=== PATIENT | female | born 1975 | race Caucasian/White ===

== ENCOUNTER 2016-09-15 17:56 | Inpatient (IN) | payer OTHER ==
--- NOTE | ~2016-09-15 | OR ---
Unit #: [id number] #: [id number] Patient: JAMES RUIZ [id number] [facility] [address]. [place], [place] [address] [id number] MR#: [id number] NAME: JAMES RUIZ ROOM: 472 Date of Procedure: 09/16/2016 Admission Date: 09/15/2016 Surgeon: Enrique Hernandez M.D. : 1975 Attending Physician: Tom Baker III, M.D. OPERATIVE REPORT PREOPERATIVE DIAGNOSES 1. Acute surgical abdomen. 2. Perforated appendix with abscess by CT. POSTOPERATIVE DIAGNOSES 1. Acute surgical abdomen. 2. Perforated appendix with abscess by CT. PROCEDURES PERFORMED 1. Exploratory laparotomy. 2. Appendectomy with drainage of the pelvic abscess. 3. Aerobic and anaerobic cultures taken. ANESTHESIA General endotracheal anesthesia. ESTIMATED BLOOD LOSS 50 mL. INDICATIONS FOR PROCEDURE Ms. Fields is a 40-year-old [place] female, who presented to [facility] after a 5-day history of abdominal pain at home. She continued to have worsening pain and fever, and came to the emergency room. In the emergency room, a CT scan was consistent with perforated appendicitis with abscess that was not amenable to percutaneous drainage. DESCRIPTION OF PROCEDURE The patient was transported from [facility] to [facility] [place] [facility], where after evaluation, she was brought to the operating room at the first available time. She had already received IV antibiotics, so after induction of general endotracheal anesthesia, nasogastric tube and Martines catheter were placed as well as SCDs. She was prepped and draped in the usual sterile fashion. A midline incision was made. We dissected down through the soft tissue and entered the peritoneal cavity. Upon entering the peritoneal cavity, we identified a phlegmonous mass in the central pelvis. As I opened up the abscess, there was gross purulent drainage, and it was suctioned out to limit the contamination of the abdominal cavity. Cultures were taken. The abscess was bounded by the appendix, cecum, the terminal ileum, the sigmoid colon, and the uterus. I dissected these structures out and examined them, the small bowel, the sigmoid colon, and uterus other than some inflammatory exudate were intact. The cecum was mobilized and brought up into the wound. The Unit #: [id number] #: [id number] Patient: JAMES RUIZ appendix was necrotic and perforated in the mid appendiceal body, so I dissected this free, clamped, divided, and suture ligated the mesoappendix, and then dissected the base of the appendix down to where it entered the cecum. This was clamped with a right angle clamp, and the appendix was sharply incised and sent to the laboratory. I suture ligated the appendiceal stump, and then it was inverted with 2-0 silk suture. I irrigated and obtained hemostasis. Some epiploic fat was sewn over the closure site. After I ensured that there was good hemostasis, we copiously irrigated the pelvis with bacitracin solution. I placed the cecum back in the right lower quadrant. I ran the small bowel, and except for the area that was inflamed from bordering the abscess, the small bowel was normal. The bowel was reduced back in the peritoneal cavity. Omentum was pulled over the bowel, and the fascia was closed with #1 looped PDS running suture. Once the fascia was closed, I irrigated the soft tissue with bacitracin solution followed by Betadine. The skin was loosely approximated with sterile skin deirdre. Dry sterile dressing was placed. Sponges and needle counts were correct x3. The patient tolerated the procedure well, and was transported to the recovery room in stable condition. Findings were discussed with the patient's friend through the use of an water manager. Dictated by... Jarek Cooper/maki TD: 09/16/2016 18:52 JOB #: [id number] OPERATIVE REPORT Page 1 of 1 X Enrique Hernandez MD PROCEDURE OPERATIVE NOTE
--- NOTE | ~2016-09-15 | DS ---
Unit #: [id number] #: [id number] Patient: JAMES RUIZ [id number] [address] [address] [id number] I MR#: [id number] NAME: JAMES RUIZ ROOM: 47 Age: 40 Sex: F Admission Date: 09/15/2016 : 1975 Discharge Date: 09/20/2016 Attending Physician: Tom Baker III, M.D. Primary Care Physician: Yessica Primary Care Physician DISCHARGE SUMMARY REASON FOR ADMISSION Perforated appendicitis. HISTORY OF PRESENT ILLNESS The patient is a 36-year-old woman who presented to the emergency room after a 5-day history of abdominal pain. She had worsening pain and fever. She came to the emergency room and a CT scan was consistent with perforated appendicitis with an abscess. It was not amenable to percutaneous drainage. PHYSICAL EXAMINATION See admission history and physical. HOSPITAL COURSE The patient was admitted to [facility] and brought to the operating room for exploratory laparotomy and appendectomy with drainage of large pelvic abscess. Postoperatively the patient had slow return of bowel function. She was advanced to a regular diet and her white blood cell count normalized. She was having bowel movements and no fevers. She was deemed ready for discharge home on 09/20/2016. DISPOSITOIN Home. DISCHARGE CONDITION Good. FOLLOWUP She will follow up with Dr. Baker in two weeks. DISCHARGE MEDICATIONS 1. [place]. 2. Flagyl. 3. Ciprofloxacin. Dictated by... Jarek Campbell/jr TD: 09/20/2016 07:51 Unit #: [id number] #: [id number] Patient: JAMES RUIZ JOB #: [id number] DISCHARGE SUMMARY Page 1 of 1 X Camron Mccoy DISCHARGE SUMMARY
[2016-09-16 04:17] LABS: BASOPHIL# 0.1 X10e3 (0-0.3); BASOPHIL% 0.4 % (0-2.5); DIFF IND YES; HEMATOCRIT 35.8 % (35.0-45.0); HEMOGLOBIN 11.7 gm/dL (12.0-16.0); LYMPHOCYTE# 2.8 X10e3 (1.0-3.5); LYMPHOCYTE% 16.5 % (17.0-45.0); MEAN CELL VOLUME 84.4 FL (83-96); MEAN CORPUSCULAR HEMOGLOBIN 27.7 PG (28-34); MEAN CORPUSCULAR HGB CONC 32.8 g/dL (30-36); MEAN PLATELET VOLUME 8.1 FL (6.5-11.5); MONOCYTE# 1.4 X10e3 (0-1.0); MONOCYTE% 8.2 % (3.0-12.0); NEUTROPHIL# 11.9 X10e3 (1.5-7.1); NEUTROPHIL% 68.9 % (40-75); PLATELET COUNT 301 X10e3 (140-420); RED BLOOD COUNT 4.24 X10e (3.90-5.30); RED CELL DISTRIBUTION WIDTH 13.4 % (11.0-15.5); WHITE BLOOD COUNT 17.3 X10e3 (4.0-10.5)
[2016-09-16 04:36] LABS: PLATELET ESTIMATE NORMAL (NORMAL); RBC NORMAL YES
[2016-09-16 04:38] LABS: CALCIUM SERUM 8.1 mg/dL (8.4-10.2); CREATININE SERUM 0.8 mg/dL (0.6-1.4); POTASSIUM 3.8 mmol/L (3.5-5.1)
[2016-09-17 02:04] LABS: BASOPHIL% 0.3 % (0-2.5); DIFF IND NO; EOSINOPHIL# 0.5 X10e3 (0-0.7); EOSINOPHIL% 4.5 % (0.0-7.0); LYMPHOCYTE# 2.4 X10e3 (1.0-3.5); LYMPHOCYTE% 22.3 % (17.0-45.0); MEAN CELL VOLUME 85.1 FL (83-96); MEAN CORPUSCULAR HEMOGLOBIN 27.6 PG (28-34); MEAN CORPUSCULAR HGB CONC 32.4 g/dL (30-36); MONOCYTE# 0.8 X10e3 (0-1.0); MONOCYTE% 7.8 % (3.0-12.0); NEUTROPHIL% 65.1 % (40-75); PLATELET COUNT 282 X10e3 (140-420); RED CELL DISTRIBUTION WIDTH 13.8 % (11.0-15.5); WHITE BLOOD COUNT 10.8 X10e3 (4.0-10.5)
[2016-09-17 02:32] LABS: BUN/CREATININE RATIO 8.75; CALCIUM SERUM 7.5 mg/dL (8.4-10.2); CREATININE SERUM 0.8 mg/dL (0.6-1.4); MAGNESIUM 1.9 mg/dL (1.6-3.0); POTASSIUM 3.8 mmol/L (3.5-5.1)
[2016-09-18 03:51] LABS: HEMATOCRIT 32.1 % (35.0-45.0); HEMOGLOBIN 10.2 gm/dL (12.0-16.0); MEAN CELL VOLUME 85.1 FL (83-96); MEAN CORPUSCULAR HEMOGLOBIN 27.2 PG (28-34); MEAN CORPUSCULAR HGB CONC 31.9 g/dL (30-36); MEAN PLATELET VOLUME 8.1 FL (6.5-11.5); RED BLOOD COUNT 3.77 X10e (3.90-5.30); RED CELL DISTRIBUTION WIDTH 13.7 % (11.0-15.5); WHITE BLOOD COUNT 12.7 X10e3 (4.0-10.5)
[2016-09-19 03:38] LABS: BASOPHIL% 0.4 % (0-2.5); DIFF IND NO; EOSINOPHIL# 1.1 X10e3 (0-0.7); EOSINOPHIL% 9.7 % (0.0-7.0); HEMATOCRIT 32.9 % (35.0-45.0); HEMOGLOBIN 10.5 gm/dL (12.0-16.0); LYMPHOCYTE# 2.2 X10e3 (1.0-3.5); LYMPHOCYTE% 19.5 % (17.0-45.0); MEAN CORPUSCULAR HEMOGLOBIN 27.2 PG (28-34); MEAN PLATELET VOLUME 7.8 FL (6.5-11.5); MONOCYTE# 0.7 X10e3 (0-1.0); NEUTROPHIL# 7.4 X10e3 (1.5-7.1); NEUTROPHIL% 64.4 % (40-75); PLATELET COUNT 351 X10e3 (140-420); RED BLOOD COUNT 3.87 X10e (3.90-5.30); RED CELL DISTRIBUTION WIDTH 13.9 % (11.0-15.5); WHITE BLOOD COUNT 11.5 X10e3 (4.0-10.5)
[2016-09-19 03:59] LABS: CALCIUM SERUM 8.1 mg/dL (8.4-10.2); CREATININE SERUM 0.7 mg/dL (0.6-1.4); GLOM FILT RATE Estimated 109.1 mL/min (>60); POTASSIUM 3.7 mmol/L (3.5-5.1)
[2016-09-20 03:55] LABS: HEMATOCRIT 32.3 % (35.0-45.0); HEMOGLOBIN 10.3 gm/dL (12.0-16.0); MEAN CELL VOLUME 85.6 FL (83-96); MEAN CORPUSCULAR HEMOGLOBIN 27.3 PG (28-34); MEAN PLATELET VOLUME 7.7 FL (6.5-11.5); RED BLOOD COUNT 3.77 X10e (3.90-5.30); RED CELL DISTRIBUTION WIDTH 13.8 % (11.0-15.5); WHITE BLOOD COUNT 9.8 X10e3 (4.0-10.5)
[2016-09-20] MEDS ORDERED: CIPRO PO (10:02)
[2016-09-20] MEDS ORDERED: HYDROCODON-ACE1 EAC9 PO (10:02)
[2016-09-20] MEDS ORDERED: FLAGYL PO (10:03)
== END 2016-09-20 11:30 | disposition home or self-care (01) | DRG 339 ==
LOC: C4C 19:43 → UNDOADMIN 19:43 → C4C 20:00
PROVIDERS: Specialist; Surgery
PROC: 0DTJ0ZZ Resection of Appendix, Open Approach (ICD-10-PCS; principal; 2016-09-16 08:30)
DX: K35.3 Acute appendicitis with localized peritonitis (principal); K91.3 Postprocedural intestinal obstruction
CPT/HCPCS: 80048; 83735; 85025; 85027; 87070; 87075; 87205; 88304; 94760; C9113; J0330; J1170; J1335; J1650; J1885; J2250; J2270; J2370; J2405; J2543; J2550; J3010